=== PATIENT | male | born 1965 | race Caucasian/White ===

== ENCOUNTER 2019-11-03 13:24 | Outpatient (CLI) | payer MEDICARE ==
--- NOTE | 2019-11-03 15:29 | Ultrasound Report ---
Reason: ABN SERUM ENZYME LEVELS Procedure Date: 11/03/2019 Accession Number: [id number] / [id number] Procedure: US - Abdomen Limited CPT Code: Final Report FULL RESULT: EXAM: ABDOMEN ULTRASOUND LIMITED, RUQ EXAM DATE: 11/03/2019 02:18 PM. CLINICAL HISTORY: ABN SERUM ENZYME LEVELS. COMPARISON: None. TECHNIQUE: Real-time scanning was performed with static images obtained. FINDINGS: Liver: Mildly inhomogeneous, increased echogenicity, suggesting diffuse fatty infiltration.Probable focal fatty sparing abutting the gallbladder fossa. Otherwise no focal lesion. Liver measures 16.4 cm craniocaudally. Main portal vein flow: Hepatopetal. Gallbladder: Gallbladder wall thickness is normal.No gallstones.Sonographic Fagan sign is absent, per technologist's notes. Biliary System: Common bile duct measures 5.7 mm. No intrahepatic ductal dilatation. Pancreas: Visualized portion is unremarkable. Right Kidney: 11.9 cm longitudinally. Normal echotexture.No hydronephrosis.No contour-deforming mass.No calculus. Other: IMPRESSION: 1. No cholelithiasis or supporting ultrasound evidence of acute cholecystitis. 2. Common bile duct is normal caliber. 3. Fatty liver. [facility]
== END 2019-11-03 13:25 | disposition home or self-care (01) ==
LOC: DI 13:24
PROVIDERS: ATTEND Internal Medicine
DX: K76.0 Fatty (change of) liver, not elsewhere classified (principal)
CPT/HCPCS: 76705